=== PATIENT | female | born 1940 | race African-American/Black ===

== ENCOUNTER → 2021-08-03 | Day surgery (SDC) | payer MEDICARE, OTHER ==
[~2021-08-03] MED LIST: ACETAMINOPHEN325 M1 PO; ARIMIDEX1 MG PO; CHOLECALCIFEROL1 GM PO; CHONDR SU A NA/HYALUR SOD 1 EACH KIT IO ONE; CLONIDINE HCL0.1 MG PO; FEROSUL325 MG PO; GUAIFENESI100 MG/5 M PO; HI CAL PO; KEPPRA500 MG PO; LISINOPRIL10 MG PO; MULTI-VITAMIN1 EACH PO; NEURONTIN300 MG PO; OR PHACO EYE KIT ONE; PREDNISOLO15 MG/5 ML OP; PREOP PHACO EYE KIT ONE; SODIUM CHLORIDE 0.9% 50ML 100 ML ONE; ZOCOR20 MG PO
[2021-08-03 09:10] VITALS: BP 166/78
== END | disposition home or self-care (01) ==
LOC: OR 05:30
PROVIDERS: ATTEND Ophthalmology
DX: H25.12 Age-related nuclear cataract, left eye (principal); J44.9 Chronic obstructive pulmonary disease, unspecified; I11.0 Hypertensive heart disease with heart failure; I50.9 Heart failure, unspecified; I48.91 Unspecified atrial fibrillation; E78.5 Hyperlipidemia, unspecified; R56.9 Unspecified convulsions; F03.90 Unspecified dementia, unspecified severity, without behavioral disturbance, psychotic disturbance, mood disturbance, and anxiety; Z20.822 Contact with and (suspected) exposure to COVID-19; Z79.899 Other long term (current) drug therapy; Z86.73 Personal history of transient ischemic attack (TIA), and cerebral infarction without residual deficits; Z85.3 Personal history of malignant neoplasm of breast
CPT/HCPCS: 66984; J0690; U0002

== ENCOUNTER → 2021-08-16 | Day surgery (SDC) | payer MEDICARE, OTHER ==
[~2021-08-16] MED LIST changes: -CHONDR SU A NA/HYALUR SOD 1 EACH KIT IO ONE; +FENTANYL CITRATE/PF 100MCG/2 ML INJ ONE; +LIDOCAINE HCL 1% 2 ML AMP ONE; +MIDAZOLAM HCL 2 MG/2 ML VIAL ONE; -SODIUM CHLORIDE 0.9% 50ML 100 ML ONE
[2021-08-16 14:25] VITALS: BP 166/90
== END | disposition home or self-care (01) ==
LOC: OR 09:32
PROVIDERS: ATTEND Ophthalmology
DX: H25.11 Age-related nuclear cataract, right eye (principal); I25.10 Atherosclerotic heart disease of native coronary artery without angina pectoris; I13.0 Hypertensive heart and chronic kidney disease with heart failure and stage 1 through stage 4 chronic kidney disease, or unspecified chronic kidney disease; N18.30 Chronic kidney disease, stage 3 unspecified; I50.9 Heart failure, unspecified; E78.5 Hyperlipidemia, unspecified; J44.9 Chronic obstructive pulmonary disease, unspecified; I48.91 Unspecified atrial fibrillation; I69.354 Hemiplegia and hemiparesis following cerebral infarction affecting left non-dominant side; F03.90 Unspecified dementia, unspecified severity, without behavioral disturbance, psychotic disturbance, mood disturbance, and anxiety; Z20.822 Contact with and (suspected) exposure to COVID-19; Z79.899 Other long term (current) drug therapy; Z85.3 Personal history of malignant neoplasm of breast
CPT/HCPCS: 66984; J2001; J2250; J3010; U0002; V2632